=== PATIENT | female | born 1945 | race Caucasian/White ===

== ENCOUNTER 2020-09-06 05:27 | Outpatient (RCR) | payer MEDICARE ==
[~2020-09-06] VITALS: Ht 167 cm; Wt 72.7 kg
[~2020-09-06 05:27] MED LIST: CALC1TAB75 PO; GABA300C PO; LISI10TA2 PO; MV-M1TAB57 PO; NIFE-25 PO; OMEP40CA27 PO; OXYB10TA6 PO; ROSU10TA28 PO; TRAM50TA3 PO; [UNRECOGNIZED DRUG - CODE] PO
== END 2020-09-06 11:06 | disposition home or self-care (01) ==
LOC: PREOP 05:27
PROVIDERS: ATTEND Urology
DX: Z01.812 Encounter for preprocedural laboratory examination (principal); Z20.828 Contact with and (suspected) exposure to other viral communicable diseases
CPT/HCPCS: 87635

== ENCOUNTER 2021-01-08 05:34 | Outpatient (RCR) | payer MEDICARE ==
[~2021-01-08] VITALS: Ht 165.1 cm; Wt 72.7 kg
[~2021-01-08 05:34] MED LIST changes: +CALC-1037 PO; -CALC1TAB75 PO; -LISI10TA2 PO; +LISI10TA25 PO
== END 2021-01-10 12:37 | disposition home or self-care (01) ==
LOC: PREOP 05:34
PROVIDERS: ATTEND Urology
DX: Z01.818 Encounter for other preprocedural examination (principal)

== ENCOUNTER 2021-01-14 06:17 | Day surgery (SDC) | payer MEDICARE ==
[2021-01-14] VITALS (11 sets, daily range): BP systolic 109–142; BP diastolic 49–74
[~2021-01-14] VITALS: Ht 165.1 cm; Wt 72.7 kg
[2021-01-14] MEDS ORDERED: cefTRIAXone FOR IV USE 1,000 MG in WATER (STERILE) FOR INJECTION 10 ML IV ONE (06:30)
[2021-01-14] MEDS ORDERED: ROCURONIUM 10 MG/ML 5 ML SYRINGE IV ONE (06:55)
[2021-01-14] MEDS ORDERED: proPOfol 200 MG/20 ML (DIPRIVAN) VIAL IV ONE (06:55)
[2021-01-14] MEDS ORDERED: LIDOCAINE PF 2% 5 ML (XYLOCAINE) VIAL ONE (06:55)
[2021-01-14] MEDS ORDERED: fentaNYL INJECTION 100 MCG/2 ML AMP ONE (06:55)
[2021-01-14] MEDS ORDERED: ONDANSETRON 4 MG/2 ML (SDV) Z0FRAN ONE (06:55)
[2021-01-14] MEDS ORDERED: GLYCOPYRROLATE 0.2 MG/ML (ROBINUL) 2 ML VIAL ONE (06:56)
[2021-01-14] MEDS ORDERED: NEOSTIGMINE 3 MG/3 ML VIAL ONE (06:56)
[2021-01-14] MEDS ORDERED: SEVOFLURANE (ULTANE) 15 ML INHAL SOLN ONE ×2 (06:56→09:22)
[2021-01-14] MEDS ORDERED: CATHETER FLUSH 10 ML SYR IV PRN (07:00)
[2021-01-14] MEDS: LACTATED RINGERS 1,000 ML IV PRN ×2 (07:02→08:57)
[2021-01-14] MEDS ORDERED: ESTRADIOL VAGINAL CREAM 42.5 GM (ESTRACE) VG ONE (07:06)
[2021-01-14] MEDS ORDERED: LIDOCAINE/EPI 1%-1:100,000 (XYLOCAINE) 50 ML ONE (07:06)
--- NOTE | 2021-01-14 07:16 | Progress Note-Pre Operative ---
Pre-Operative Progress Note H&P Reviewed The H&P was reviewed, patient examined and no changes noted. Date Seen by Provider: Jan 14, 2021 Time Seen by Provider: 07:15 Date H&P Reviewed: Jan 14, 2021 Time H&P Reviewed: 07:15 Pre-Operative Diagnosis: CYSTOCELE AND INCONTINENCE BELKIS TABARES MD Jan 14, 2021 07:16
--- NOTE | 2021-01-14 07:23 | Progress Note-Post Operative ---
Post-Operative Progess Note Surgeon (s)/Composer Teaching Artist (s) Surgeon BELKIS TABARES MD Composer Teaching Artist: NONE Pre-Operative Diagnosis CYSTOCELE AND INCONTINENCE Post-Operative Diagnosis SAME Procedure & Operative Findings Date of Procedure 01/14/21 Procedure Performed/Findings ANTERIOR REPAIR, PVS, AND CYSTOSCOPY Anesthesia Type GENERAL Estimated Blood Loss Estimated blood loss (mL): LESS THAN 50 cc Specimens/Packing Specimens Removed NONE TO PATH [employer] ESTRACE VAG PACK BELKIS TABARES MD Jan 14, 2021 07:23
[2021-01-14] MEDS ORDERED: KETOROLAC 30 MG/ML VIAL IV PRN (07:30)
--- NOTE | 2021-01-14 09:56 | Anesthesia-General Post-Op ---
General Patient Condition Mental Status/LOC: Same as Preop Cardiovascular: Satisfactory Nausea/Vomiting: Absent Respiratory: Satisfactory Pain: Controlled Complications: Absent Post Op Complications Complications None Follow Up Care/Instructions Patient Instructions None needed. Anesthesia/Patient Condition Patient Condition Patient is doing well, no complaints, stable vital signs, no apparent adverse anesthesia problems. No complications reported per nursing. MIKE SANTIAGO CRNA Jan 14, 2021 09:56
[2021-01-14] MEDS: LACTATED RINGERS 1,000 ML IV SCH ×2 (10:00→21:50)
[2021-01-14] MEDS ORDERED: fentaNYL INJECTION 100 MCG/2 ML AMP IVP ONE (10:00)
[2021-01-14] MEDS ORDERED: ONDANSETRON 4 MG/2 ML (SDV) Z0FRAN IVP PRN (10:00)
[2021-01-14] MEDS ORDERED: KETOROLAC 30 MG/ML VIAL ONE (14:22)
--- NOTE | 2021-01-14 14:30 | OPERATIVE REPORT ---
DATE OF SERVICE: 01/14/2021 PREOPERATIVE DIAGNOSES: 1. Cystocele. 2. Stress urinary incontinence. POSTOPERATIVE DIAGNOSES: 1. Cystocele. 2. Stress urinary incontinence. OPERATION PERFORMED: Anterior repair, pubovaginal sling and cystoscopy. SURGEON: Nick Tabares MD ANESTHESIA: General. COMPLICATIONS: None. DESCRIPTION OF PROCEDURE: Under satisfactory general anesthesia, the patient in extended lithotomy position, abdomen, genitalia and thigh were prepped and draped in the usual sterile fashion with a separate vaginal prep. Lee catheter was inserted, draining clear urine. The anterior vaginal wall was infiltrated with 2% lidocaine with epinephrine. An incision was made vertically proximal to the meatus, carried toward the top of the bladder, carried down to the fascia. Dissection was carried toward the pubic arch on both sides. The fascia was approximated with interrupted 2-0 Vicryl with good elevation and support of the bladder. I then passed the sling instrument on both sides using the described technique and the instrument. The sling was sitting nicely under the mid urethra with no tension, no twist and passage of a curved hemostat easily between it and the underlying tissue. I removed the Lee catheter and performed cystoscopy to confirm the integrity of the bladder, ureters and urethra with no foreign body and presence of the sling under the mid urethra. I left the bladder half full to perform a manual Valsalva maneuver that was negative. I reinserted the Lee catheter draining clear fluid. I excised the excess vaginal epithelium, then approximated it with a running 2-0 Vicryl Rapide type suture. Two grams Estrace vaginal pack was inserted. Estimated blood loss was less than 50 mL, none of which was replaced. Needle, sponge and instrument counts were correct x2. Urine was clear. The patient tolerated the procedure and anesthesia well and was sent to recovery room in stable condition. Job ID: [id number] DocumentID: [id number] Dictated Date: 01/14/2021 09:49:47 [employer] Date: 01/14/2021 14:29:36 Dictated By: NICK TABARES MD
[2021-01-15] VITALS: BP 149/64
[2021-01-15 04:35] VITALS: BP 143/78
[2021-01-15] MEDS ORDERED: LEVOFLOXACIN 250 MG/50 ML IVPB 50 ML IV SCH (07:23)
[2021-01-15 08:20] VITALS: BP 132/62
--- NOTE | 2021-01-15 09:17 | Progress Note - Urology ---
Progress Note-Urology Progress Notes/Assess & Plan Progress/Assessment & Plan DOING, FEELING, AND LOOKING WELL. AGUAYO OUT. DID NOT VOID YET. DRY Final Diagnosis CYSTOCELE AND INCONTINENCE BELKIS TABARES MD Jan 15, 2021 09:17
== END 2021-01-15 12:55 | disposition home or self-care (01) ==
LOC: SDC 06:17 → WS 10:40 → SDC 01-15 12:55
PROVIDERS: ATTEND Urology
DX: N81.10 Cystocele, unspecified (principal); N39.3 Stress incontinence (female) (male); I10 Essential (primary) hypertension; K21.9 Gastro-esophageal reflux disease without esophagitis; J44.9 Chronic obstructive pulmonary disease, unspecified; Z79.899 Other long term (current) drug therapy; Z88.2 Allergy status to sulfonamides; Z88.0 Allergy status to penicillin; Z88.1 Allergy status to other antibiotic agents; Z88.8 Allergy status to other drugs, medicaments and biological substances
CPT/HCPCS: 57240; 57288; 87081; C1771